=== PATIENT | female | born 1970 | race Caucasian/White ===

== ENCOUNTER → 2020-03-21 16:05 | Outpatient (CLI) | payer BC, SELFPAY ==
--- NOTE | ~2020-03-21 | MM_ITS ---
EXAMINATION: MM screening [facility] BI w cecy HISTORY: Screening TECHNIQUE: Craniocaudal and mediolateral oblique 3-D tomosynthesis images were obtained and synthetic 2-D images were generated. CAD analysis was submitted and interpreted. COMPARISON: Comparison to multiple prior studies sequentially, with oldest reviewed study dated 06/15. BREAST PARENCHYMAL COMPOSITION: The breasts are heterogenously dense, which may obscure small masses FINDINGS: There is no evidence of suspicious mass, calcification, or architectural distortion to sugg est malignancy in either breast. There has been no suspicious interval change. IMPRESSION: 1. No mammographic evidence of malignancy. 2. Recommend routine screening mammography in one year. BI-RADS Category 1: Negative Reviewed, dictated and finalized at location A.
== END ==
PROVIDERS: PCP Family Medicine; Visit Provider Obstetrics & Gynecology
DX: Z12.31 Encounter for screening mammogram for malignant neoplasm of breast (principal)
CPT/HCPCS: 77063; 77067

== ENCOUNTER → 2021-04-27 15:53 | Outpatient (CLI) | payer BC, SELFPAY ==
--- NOTE | ~2021-04-27 | MM_ITS ---
EXAMINATION: MM screening [facility] BI w cecy HISTORY: Screening mammogram TECHNIQUE: Craniocaudal and mediolateral oblique 3-D tomosynthesis images were obtained and synthetic 2-D images were generated. CAD analysis was submitted and interpreted. COMPARISON: 03/21/2020, 11/02/2018, 09/10/2017 bilateral digital screening mammogram examinations BREAST PARENCHYMAL COMPOSITION: The breasts are heterogeneously dense, which may obscure small masses . FINDINGS: There is no evidence of suspicious mass, calcification, or architectural distortion to sugg est malignancy in either breast. There has been no suspicious interval change. IMPRESSION: 1. No mammographic evidence of malignancy. 2. Recommend routine screening mammography in one year. BI-RADS Category 1: Negative Reviewed, dictated and finalized at location A.
== END ==
PROVIDERS: PCP Family Medicine; Visit Provider Obstetrics & Gynecology
DX: Z12.31 Encounter for screening mammogram for malignant neoplasm of breast (principal)
CPT/HCPCS: 77063; 77067

== ENCOUNTER 2022-03-05 00:48 | Day surgery (SDC) | payer BC, SELFPAY ==
[2022-02-20 13:24] VITALS: BMI 26.6
[2022-03-05 06:40] VITALS: BP 106/79; PULSE 74; RESP 18; TEMP 35.9; O2SAT 100; BMI 26.8
[2022-03-05] MEDS: LACTATED RINGERS 1,000 ML 150 ML IV CONT (07:03)
--- NOTE | 2022-03-05 07:36 | P.PNAN_ITS ---
Anes - Initial Pre Proc Eval Procedure: Operation Date: 03/05/22 08:15 Proposed Procedures p Screening Colonoscopy - Janes Lyon MD Date/Time: 03/05/22 07:36 Surgeon: Janes Lyon MD Pre Op Diagnosis: neoplasm screening Patient Data Age: 51 Gender: F Height: 1.73 m Weight: 80.1 kg Last Vital Signs Temp 96.6 F L 03/05/22 06:40 Pulse 74 03/05/22 06:40 Resp 18 03/05/22 06:40 BP 106/79 03/05/22 06:40 Pulse Ox 100 03/05/22 06:40 O2 Del Method Room Air 03/05/22 06:40 Allergies Allergy/AdvReac Type Severity Reaction Status Date / Time No Known Allergies Allergy Unknown Verified 03/05/22 06:49 Home Medications Medication Instructions Recorded Confirmed Type multivitamin 1 tablet PO DAILY 02/29/20 03/05/22 History Patient hx anesthesia problems: none Family hx anesthesia problems: none Results Review: All pre-operative results and documents have been reviewed as part of the pre- operative evaluation. [facility] Past Medical History Medical History Cervical dysplasia Hypothyroidism Menopausal symptoms Surgical History Surgical History History of hysterectomy Family History Family History Father Hypertension, Onset Age: 79 Family history of coronary artery disease, Onset Age: 79 Patient's father is Heart disease Other Adult hypothyroidism Cerebrovascular accident Diabetes mellitus Family history of malignant neoplasm History of appendectomy Social History Social History Smoking status: Former smoker Second hand tobacco smoke exposure: No Smoking end date: 07/14/02 Alcohol intake: current Drinks per week: 3 Substance use type: does not use Living arrangements: with family Spiritual care concerns: No Anes - Eval Final PreProcedure Day of Procedure 03/05/22 07:36 Patient weight: normal Heart: regular rate and rhythm Lungs: clear to auscultation Airway: Mallampati scale class II Neurological: alert and oriented Last oral intake: >/= 8 hours ASA classification: II Emergent: no Anesthetic plan: proceed Anesthesia type and monitoring: general GIVS and standard monitoring Results Review: All pre-operative results and documents have been reviewed as part of the pre- operative evaluation. Informed Consent: The patient's anesthetic plan and its attendant risks and benefits were discussed with the patient/family/POA. Questions were solicited and answers provided to the satisfaction of the patient/family/POA.
--- NOTE | 2022-03-05 07:51 | PM.HPGS ---
History of Present Illness History of Present Illness Consent: Risks, benefits, and alternatives have been discussed and questions answered. Patient agrees to proceed with procedure. Chief complaint: neoplasm screening Narrative: Jessica Chawla is a 51 year old female here for first screening colonoscopy Review of Systems Constitutional: Constitutional: Denies headache(s) and Denies weakness Eyes: Eyes: Denies blurry vision ENT: Reports Normal hearing present, Denies headache(s) and Denies neck pain Cardiovascular: Cardiovascular: Denies chest pain and Denies dyspnea Respiratory: Respiratory: Denies dyspnea Gastrointestinal: Gastrointestinal: Reports no additional gastrointestinal complaints Genitourinary: Genitourinary: Denies dysuria Musculoskeletal: Musculoskeletal: Denies neck pain Integumentary/Breasts: Skin/Breast: Denies dry skin Neurologic: Reports Normal hearing present, Denies headache(s) and Denies weakness Psychiatric: Psychiatric: Denies anxiety Endocrine: Endocrine: Denies change in body appearance Hematologic/Lymphatic: Hematologic/Lymphatic: Denies easy bleeding Allergic/Immunologic: Allergic/Immunologic: Denies urticaria PMFSH Past Medical History Medical History (Updated 03/05/22 @ 07:51 by Janes Lyon MD) Cervical dysplasia Colon cancer screening Hypothyroidism Menopausal symptoms Surgical History Surgical History History of hysterectomy Family History Family History Father Hypertension, Onset Age: 79 Family history of coronary artery disease, Onset Age: 79 Patient's father is Heart disease Other Adult hypothyroidism Cerebrovascular accident Diabetes mellitus Family history of malignant neoplasm History of appendectomy Social History Social History Smoking status: Former smoker Second hand tobacco smoke exposure: No Smoking end date: 07/14/02 Alcohol intake: current Drinks per week: 3 Substance use type: does not use Living arrangements: with family Spiritual care concerns: No Meds Home Medications and Allergies Home Medications Medication Instructions Recorded Confirmed Type multivitamin 1 tablet PO DAILY 02/29/20 03/05/22 History Allergies Allergy/AdvReac Type Severity Reaction Status Date / Time No Known Allergies Allergy Unknown Verified 03/05/22 06:49 Vital Signs Vital Signs - 24 hr 03/05/22 06:40 Temperature 96.6 F L Pulse Rate 74 Respiratory Rate 18 Blood Pressure 106/79 Pulse Oximetry 100 Oxygen Delivery Room Air Exam Const: General: comfortable and no acute distress HENMT: General nose exam: Normal nares present Eyes: General: appearance normal, both eyes and all related structures Neck: Neck: no JVD Resp: Auscultation: clear to auscultation bilaterally Cardio: Rate: regular rate Rhythm: regular rhythm GI: Inspection: non-distended GI Palp: Yes Soft to palpation Skin: General skin exam: normal color Neuro: General: gait normal Speech: normal speech Extrem: General: normal to inspection Psych: Mental Status: mental status grossly normal Assessment and Plan Assessment and plan (1) Colon cancer screening: Code(s): Z12.11 - Encounter for screening for malignant neoplasm of colon Status: Acute Assessment and Plan: colonoscopy
[2022-03-05 08:07] VITALS: BP 90/59; PULSE 78; RESP 13; O2SAT 97
[2022-03-05 08:17] VITALS: BP 106/75; PULSE 81; RESP 15; O2SAT 100
[2022-03-05 08:27] VITALS: BP 111/76; PULSE 67; RESP 15; O2SAT 100
== END 2022-03-05 08:35 | disposition home or self-care (01) ==
PROVIDERS: PCP Family Medicine; Visit Provider Internal Medicine Gastroenterology
PROC: 0DJD8ZZ Inspection of Lower Intestinal Tract, Via Natural or Artificial Opening Endoscopic (ICD-10-PCS; CPT 45378; principal; 2022-03-05 08:15)
DX: Z12.11 Encounter for screening for malignant neoplasm of colon (principal); K64.8 Other hemorrhoids; K63.89 Other specified diseases of intestine; E03.9 Hypothyroidism, unspecified; Z87.891 Personal history of nicotine dependence
CPT/HCPCS: 45378; J2704; J7120

== ENCOUNTER → 2022-07-29 16:22 | Outpatient (CLI) | payer BC, SELFPAY ==
--- NOTE | ~2022-07-29 | MM_ITS ---
EXAMINATION: MM screening [facility] BI w cecy HISTORY: Screening mammogram TECHNIQUE: Craniocaudal and mediolateral oblique 3-D tomosynthesis images were obtained and synthetic 2-D images were generated. CAD analysis was submitted and interpreted. COMPARISON: 04/27/2021, 03/21/2020, 11/02/2018 BREAST PARENCHYMAL COMPOSITION: There are scattered areas of fibroglandular density. FINDINGS: No suspicious mass, calcification, or architectural distortion are identified in either michael ast to suggest malignancy. There has been no suspicious interval change. IMPRESSION: 1. No mammographic evidence of malignancy. 2. Recommend routine screening mammography in one year. BI-RADS Category 1: Negative Reviewed, dictated and finalized at location A. FOLLOWER
== END ==
PROVIDERS: PCP Family Medicine; Visit Provider Obstetrics & Gynecology
DX: Z12.31 Encounter for screening mammogram for malignant neoplasm of breast (principal)
CPT/HCPCS: 77063; 77067

== ENCOUNTER 2024-02-10 14:10 | Outpatient (CLI) | payer BC, SELFPAY ==
--- NOTE | ~2024-02-10 | MM_ITS ---
EXAMINATION: MM screening [facility] BI w cecy HISTORY: Screening TECHNIQUE: Craniocaudal and mediolateral oblique 3-D tomosynthesis images were obtained and synthetic 2-D images were generated. CAD analysis was submitted and interpreted. COMPARISON: Comparison to multiple prior studies sequentially, with oldest reviewed study dated 09/05. BREAST PARENCHYMAL COMPOSITION: Not dense: There are scattered areas of fibroglandular density. FINDINGS: There is no evidence of suspicious mass, calcification, or architectural distortion to sugg est malignancy in either breast. There has been no suspicious interval change. IMPRESSION: 1. No mammographic evidence of malignancy. 2. Recommend routine screening mammography in one year. BI-RADS Category 1: Negative Reviewed, dictated and finalized at location B.
== END 2024-02-10 14:11 ==
LOC: MICIMG 14:12
PROVIDERS: PCP Family Medicine; Visit Provider Family Medicine
DX: Z12.31 Encounter for screening mammogram for malignant neoplasm of breast (principal)
CPT/HCPCS: 77063; 77067

== ENCOUNTER 2024-11-02 15:34 | Outpatient (CLI) | payer BC, SELFPAY ==
--- NOTE | ~2024-11-02 | CT_ITS ---
CLINICAL INDICATION: Right flank pain COMPARISON: None. TECHNIQUE: Multiple contiguous axial images of the abdomen and pelvis were performed without the admi nistration of intravenous contrast The dose-length product (DLP) was 202.66 mGy-cm. Automated exposure control and iterative reconstruction technique were employed. FINDINGS/OBSERVATIONS: Visualized lower thorax: The bilateral lung bases are clear. The heart is of normal size, without pericardial effusion. Small hiatal hernia is present. Liver: The liver demonstrates homogeneous attenuation and is not enlarged. Gallbladder and biliary system: The gallbladder is decompressed, with surrounding inflammatory change, a nonspecific finding. Pancreas: Limited evaluation of the pancreas secondary to the lack of intravenous contrast. Spleen: The spleen demonstrates homogeneous attenuation and is not enlarged. Kidneys: A 5.4 mm nonobstructing calcified stone is identified within the lower pole of the right kidney. A 2 mm calcified nonobstructing stone is identified within the upper pole of the right kidney. A 3.4 mm nonobstructing calcified stone is identified within the upper pole of the left kidney. A 5 mm nonobstructing calcified stone is identified within the lower pole of the left kidney. No hydronephrosis is identified bilaterally. Adrenal glands: Unremarkable. Gastrointestinal tract: Trace fecal stasis within the colon. Appendix: The air-filled appendix is of normal caliber (axial series, images 113 through 126) Vasculature: Unremarkable. Lymph nodes: No pathologically enlarged or morphologically suspicious lymph nodes within the retroperitoneum or at the root of the mesentery. Pelvic structures: The bladder is significantly distended, and otherwise unremarkable. The uterus is either surgically absent or markedly atrophic. Body wall and musculoskeletal: Small fat-containing umbilical hernia. No significant degenerative disease within the lower thoracic or lumbosacral spine. IMPRESSION: No obstructive uropathy. Bilateral nonobstructing renal calculi, as detailed above. Inflammatory change is identified surrounding a decompressed gallbladder, a nonspecific finding. Reviewed, dictated and finalized at location A. IMPRESSION: No obstructive uropathy. Bilateral nonobstructing renal calculi, as detailed above. Inflammatory change is identified surrounding a decompressed gallbladder, a non specific finding.
--- NOTE | ~2024-11-02 | XR_ITS ---
Exam: Abdomen 1V HISTORY: UNSPECIFIED ABDOMEN PAIN COMPARISON: Reference is made to a CT examination of the abdomen and pelvis, performed approximately 15 minutes earlier. TECHNIQUE: Supine images of the abdomen FINDINGS: Bowel gas pattern is nonspecific and non-obstructive. Fecal stasis within the colon. Calcifications detected bilaterally projecting over the bilateral kidneys. 5 mm projecting over the lower pole of the right kidney and 3 mm projecting over the lower pole of th e left kidney. Lung bases are clear. Bones and soft tissues are unremarkable. IMPRESSION: Nonspecific, nonobstructive bowel gas pattern. Bilateral renal calculi. Reviewed, dictated and finalized at location A.
--- OUTSIDE RECORDS SUMMARY | 2024-11-02 17:41 | XMS_ITS | Clinical Summary ---
Author Organization [address] Address [address] [place] [address] Care Team Providers Care Mental Health Unit Lead Psychologist Name Role Phone No, Physician Primary Care Provider [phone] Allergies No known active allergies Medications No known medications Active Problems No known active problems Encounters Date Type Department Care Team Description 10/19/2024 Telephone [facility] at [address] [place] [address] Christina Hayes MA 10/17/2024 Results Follow-Up [facility] Medical [facility] at [address] [place] [address] Queenie Stevens NP 10/16/2024 2:30 PM CDT Office Visit [facility] Medical [facility] at [address] [place] [address] Queenie Stevens NP Urinary tract infection without hematuria, site unspecified (Primary Dx); Flank pain; Dysuria 10/16/2024 2:26 PM CDT - 10/16/2024 11:59 PM [place] [address] Urinary tract infection without hematuria, site unspecified Discharge Disposition: Discharge to home or self care from Last 3 Months Social History Tobacco Use Types Packs/Day Years Used Date Smoking Tobacco: Former Cigarettes Passive Smoke Exposure: Never Comments No Sex and Gender Information Value Date Recorded Sex Assigned at Not on file 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 Gender Identity Not on file Sexual Orientation Not on file Obstetrics History Last Filed Vital Signs Vital Sign Reading Time Taken Comments Blood Pressure 110/76 10/16/2024 2:29 PM CDT Pulse 89 10/16/2024 2:29 PM CDT Temperature 37 C (98.6 F) 10/16/2024 2:29 PM CDT Respiratory Rate 18 10/16/2024 2:29 PM CDT Oxygen Saturation 99% 10/16/2024 2:29 PM CDT Inhaled Oxygen Concentration - - Weight 79 kg (174 lb 3.2 oz) 10/16/2024 2:29 PM CDT Height - - Body Mass Index - - Plan of Treatment Health Maintenance Due Date Last Done Comments Breast Cancer Screening-Mammogram 1972 Colon Cancer Screening-Colonoscopy 1972 Depression Screening 1972 Hepatitis C Screening 1972 DTaP/Tdap/Td Vaccine (1 - Tdap) 1983 Hepatitis B Screening 1990 Regular Well Visit/Exam 18-64 1990 Zoster Vaccine (1 of 2) 2022 Influenza Vaccine (Season Ended) 2025 Pneumococcal vaccine <65 Aged Out No longer eligible based on patient's age to complete this topic Procedures Procedure Name Priority Date/Time Associated Diagnosis Comments POCT URINALYSIS DIPSTICK Routine 10/16/2024 2:40 PM CDT Urinary tract infection without hematuria, site unspecified URINE CULTURE Routine 10/16/2024 2:26 PM CDT Urinary tract infection without hematuria, site unspecified from Last 3 Months Results * (ABNORMAL) POCT urinalysis dipstick (10/16/2024 2:40 PM CDT) Color, Urine, POC Yellow Clarity, ur, POC Clear Clear Glucose, ur, POC Negative Negative MG/DL Bilirubin, ur, POC Negative Negative, Small, Moderate, Large Ketones, ur, POC Trace(A) Negative Specific [place], POC 1.015 1.003 - 1.030 Blood, ur, POC Negative Negative pH, ur, POC 6.5 5.0 - 8.0 Protein, ur, POC Negative Negative Urobilinogen, urine, POC 0.2 0.2 - 1.0 mg/dL Nitrite, ur, POC Negative Negative Leukocytes, ur, POC Negative Negative Lot Number [id number] Urine 10/16/2024 2:40 PM CDT Queenie Stevens NP POINT OF CARE TEST ORDERAB LES Final Result * Urine culture Urine, bladder (10/16/2024 2:26 PM CDT) Report Final Report: Less than 100,000 colonies/mL (clinically insignificant growth based on current clinical standards) Comment:Testing performed by : [facility], [address] [facility] [place]., [address] Organism (CLINICALLY INSIGNIFICANT GROWTH TITO Urine, bladder 10/16/2024 2: 26 PM CDT 10/16/2024 7:41 PM CDT Narrative TITO - 10/18/2024 6:12 AM CDT Testing performed by [facility] Microbiology Laboratory ([phone]) Queenie Stevens NP LAB MICROBIOLOGY - GENERAL ORDERABLES Final Result TITO [id number] Department [place] [address] from Last 3 Months Insurance [facility] Care Teams Mental Health Unit Lead Psychologist Relationship Specialty Start Date End Date No, Physician PCP - General 10/16/24
--- OUTSIDE RECORDS SUMMARY | 2024-11-02 17:41 | XMS_ITS | Referral Summary ---
Author Organization [address] Address [address] [place] [address] Care Team Providers Care Oracle Business Intelligence Developer Name Role Phone No, Physician Primary Care Provider [phone] Encounters Date Type Department Care Team Description 10/19/2024 Telephone [facility] at [address] [place] [phone] Christina Hayes MA 10/17/2024 Results Follow-Up [facility] Medical [facility] Care at [address] [place] [phone] Queenie Stevens NP 10/16/2024 2:26 PM CDT - 10/16/2024 11:59 PM CD[place] [address] Urinary tract infection without hematuria, site unspecified Discharge Disposition: Discharge to home or self care 10/16/2024 2:30 PM CDT Office Visit [facility] at [address] [place] [phone] Queenie Stevens, MARKO Urinary tract infection without hematuria, site unspecified (Primary Dx); Flank pain; Dysuria from Last 3 Months Allergies No known active allergies Medications No known medications Active Problems No known active problems Social History Tobacco Use Types Packs/Day Years Used Date Smoking Tobacco: Former Cigarettes Passive Smoke Exposure: Never Comments No Sex and Gender Information Value Date Recorded Sex Assigned at Not on file 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 Gender Identity Not on file Sexual Orientation Not on file Last Filed Vital Signs Vital Sign Reading [...] Mass Index - - Plan of Treatment Not on file Procedures Procedure Name Priority Date/Time Associated Diagnosis [...] Large Ketones, ur, POC Trace(A) Negative Specific Thomas, POC 1.015 1.003 - 1.030 Blood, ur, POC Negative Negative pH, ur, POC 6.5 5.0 - 8.0 Protein, ur, POC Negative Negative Urobilinogen, urine, POC 0.2 0.2 - 1.0 mg/dL Nitrite, ur, POC Negative Negative Leukocytes, ur, POC Negative Negative Lot Number [id number] Urine 10/16/2024 2:40 PM CDT Queenie Stevens NP POINT OF CARE TEST ORDERAB LES Final Result * Urine culture Urine, bladder (10/16/2024 2:26 PM CDT) Report Final Report: Less than 100,000 colonies/mL (clinically insignificant growth based on current clinical standards) Comment:Testing performed by : [facility], [address] [facility], [facility] [place] [address] Organism (CLINICALLY INSIGNIFICANT GROWTH TITO GUILLEN Urine, bladder 10/16/2024 2: 26 PM CDT 10/16/2024 7:41 PM CDT Narrative TITO GUILLEN - 10/18/2024 6:12 AM CDT Testing performed by [facility] Microbiology Laboratory ([phone]) us Queenie Stevens NP LAB MICROBIOLOGY - GENERAL ORDERABLES Final Result TITO GUILLEN [id number] Department [place] [address] from Last 3 Months Insurance [facility] Care Teams Oracle Business Intelligence Developer Relationship Specialty Start Date End Date No, Physician PCP - General 10/16/24
--- OUTSIDE RECORDS SUMMARY | 2024-11-02 17:41 | XMS_ITS | Encounter Summary ---
Author Organization [facility] Address [address] [place] [id number] Care Team Providers Care Medical Technician Name Role Phone No, Physician Primary Care Provider [phone] Encounter Details Date Type Department Care Team (Late st Contact Info) Description 10/17/2024 Results Follow-Up [facility] at [place] [address] [place] [address] Queenie Stevens, BANK MANAGER 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 No antibiotic prescribed. documented in this encounter Plan of Treatment Not on file documented as of this encounter Visit Diagnoses Not on filedocumented in this encounter Care Teams Medical Technician Relationship Specialty Start Date End Date No, Physician PCP - General 10/16/24 documented as of this encounter
== END 2024-11-02 15:35 | disposition home or self-care (01) ==
PROVIDERS: PCP Family Medicine; Visit Provider Nurse Practitioner Family
DX: N20.0 Calculus of kidney (principal); K81.9 Cholecystitis, unspecified; K82.9 Disease of gallbladder, unspecified
CPT/HCPCS: 74018; 74176

== ENCOUNTER 2024-11-13 08:18 | Outpatient (CLI) | payer BC, SELFPAY ==
--- NOTE | ~2024-11-13 | US_ITS ---
Abdominal Sonogram: Real-time sonographic imaging of the abdomen was performed. Clinical History: Abnormal findings of diagnostic imaging Findings: The liver appears normal with no evidence of mass lesion or bile duct dilatation. Main por yuliet vein demonstrates normal direction of flow. The spleen is normal in size without evidence of foca l lesion. The gallbladder is well distended, and contains an echogenic, shadowing gallstone. No gall bladder wall thickening. The common bile duct measures 4 mm. The visualized pancreas, aorta, and IVC are unremarkable. The right kidney measures 11.0 cm in length and the left kidney measures 11.3 cm. There is no hydronephrosis or renal calculus. Impression: Cholelithiasis. Reviewed, dictated and finalized at location M. Impression: Cholelithiasis.
== END 2024-11-13 08:19 | disposition home or self-care (01) ==
LOC: MICIMG 08:19
PROVIDERS: PCP Family Medicine; Visit Provider Nurse Practitioner Family
DX: R93.5 Abnormal findings on diagnostic imaging of other abdominal regions, including retroperitoneum (principal); K80.20 Calculus of gallbladder without cholecystitis without obstruction; K82.9 Disease of gallbladder, unspecified; Z13.1 Encounter for screening for diabetes mellitus; Z13.220 Encounter for screening for lipoid disorders
CPT/HCPCS: 76700

== ENCOUNTER 2025-01-19 00:20 | Day surgery (SDC) | payer BC, SELFPAY ==
[2025-01-11 15:05] VITALS: BMI 26.6
--- NOTE | 2025-01-11 15:12 | SUR.PREOP ---
Report to the Outpatient Waiting Room, entrance under the green pavilion located off [facility], at time 6:00a.m on date 01/19/2025. Planned Procedure Time: 7:30a.m. Time changes happen often and if your time is changed the preop area will call you the afternoon before. - You and your visitor will be asked to self-screen and do not enter if you have any COVID symptoms. Please call surgeon if you need to reschedule. - A mask is optional within the hospital at this time. Patients may have clear liquids (water, carbonated beverages, clear teas, apple juice) until 3 hours prior to surgery with a maximum of 20 ounces. - No food from midnight until time of surgery and no smoking, or chewing tobacco (or any form of nicotine). No chewing gum, candy or mints. Take only the following medications with a SIP of water on the morning of surgery: NONE DO NOT STOP ANY OF YOUR OTHER PRESCRIPTION MEDICATIONS PRIOR TO SURGERY EXCEPT THE FOLLOWING Hold all vitamins and supplements for 3 days per anesthesiologist. STOP TAKING MULTIVITAMIN 01/17/2025 Please no make-up, nail kazakh, hairspray, perfume, deodorant, or body powder the day of surgery.? No jewelry (including any body piercings) or valuables the day of surgery, leave them at home.? Please take a shower or bath the night before, or the morning of, surgery with an antibacterial soap.? Wear comfortable, loose fitting clothing.? Children are encouraged to wear pajamas. - Jewelry must be removed prior to entering the operating room.? Rings and piercings that are not removed may be cut off. - The hospital will not accept responsibility for valuables.? - Please leave all valuables, including medications, at home the day of surgery. If you are going home after surgery, a licensed putaway driver must drive you home.? - NO public transportation without another adult if you receive anesthesia. - We recommend that an adult stay with you for 24 hours following discharge. - We also recommend that you do not drive, make important decision, drink alcoholic beverages, or take any drugs that were not prescribed by your health care provider for at least 24 hours after your discharge time. Follow any additional instructions given to you from your surgeon. Telephone instructions given to Jessica Ling and asked if any additional questions and then verbalized understanding. Patient advised to call surgeon office or pre surgery nurse liaison [phone] if any additional questions.
--- NOTE | 2025-01-18 07:07 | P.SS_ITS ---
Same Day Admit/Disch: HPI History of Present Illness Chief complaint: chronic cholecystitis with cholelithiasis Narrative: Jessica Ling is a 54 year old female with gallstones and right upper quadrant pain.Patient reports she started to experience severe right flank pain that radiated to RUQ. She states she was up all night with nausea, vomiting and diarrhea. She states the pain resolved by the next day, but she is still having some abdominal tenderness. Patient had CT scan done on 11/02/24 which showed The gallbladder is decompressed, with surrounding inflammatory change, a nonspecific finding. A follow up US done on 11/13/24 showed cholelithiasis. Patient reports her mother had a cholecystectomy. [facility] Past Medical History Medical History Gallstones and inflammation of gallbladder without obstruction Constipation Bilateral renal stones Nausea & vomiting Fatigue Onychomycosis of toenail Toenail deformity Enlarged thyroid gland Right flank pain BMI 25.0-25.9,adult Body mass index [BMI] 26.0-26.9, adult Colon cancer screening Cervical dysplasia Hypothyroidism Menopausal symptoms Surgical History Surgical History H/O LEEP History of hysterectomy (~2011) Abnormal pap smears per patient. Dr Juares Family History Family History Father Hypertension, Onset Age: 79 Family history of coronary artery disease, Onset Age: 79 Patient's father is Heart disease Other Adult hypothyroidism Cerebrovascular accident Diabetes mellitus Family history of malignant neoplasm History of appendectomy Social History Social History Smoking status: Former smoker Second hand tobacco smoke exposure: No Smoking end date: 07/14/02 Alcohol intake: current Drinks per week: 3 Substance use type: does not use Do You Feel Safe in your Home?: Yes Lack of Transportation: No Lack of Food: Never True Current Housing: I Have Housing Concerned About Future Housing: No Difficulty Paying Gas/Electric Bills: No Difficulty Paying for Meds: No Currently Unemployed: No Education: Bachelor's Degree Difficulty w/ Childcare or Family Care: No Living arrangements: with family Occupation/Education: occupation Gender identity (if verbalized by the patient): Female Spiritual care concerns: No Same Day Admit/Disch: Med Pre-admit Medications Home Medications ?Medication ?Instructions ?Recorded ?Confirmed ?Type multivitamin 1 tablet PO DAILY 02/29/20 01/11/25 History estradiol 2 mg tablet 2 mg PO DAILY 04/16/23 01/11/25 History prasterone (DHEA) 25 mg tablet 10 mg PO DAILY 06/02/23 01/11/25 History (DHEA) ketorolac 10 mg tablet 10 mg PO Q6H 4 days #16 tabs 01/19/25 Rx oxycodone-acetaminophen 5 mg-325 0.5 - 1 tablet PO Q4H PRN pain #10 01/19/25 Rx mg tablet (Percocet) tabs Review of Systems Review of Systems All systems reviewed & are unremarkable except as noted in HPI and below (HPI) Exam Const: General: comfortable, no acute distress, alert and awake HENMT: Head: normocephalic and atraumatic Mouth: Yes Normal oral and palatal mucosa present Eyes: Conjunctivae: conjunctivae normal Pupils: Equal, round and reactive pupils present EOM: EOMs intact bilaterally Neck: Neck: normal visual inspection, no lymphadenopathy and nontender Resp: Effort & Inspection: normal respiratory effort Auscultation: clear to auscultation bilaterally Cardio: Rate: regular rate Rhythm: regular rhythm Heart sounds: no gallops, no murmurs and no rubs GI: Inspection: non-distended GI Palp: Yes Soft to palpation, No Tenderness to palpation present (GI), No Hepatomegaly present and No Splenomegaly present Skin: Lesions: no lesions Rashes: no rashes Neuro: General: no focal motor deficits and CN's II-XI intact bilaterally Cranial nerves: Yes Equal, round and reactive pupils present, Yes Bilaterally intact EOM present, Yes facial symmetry and Yes Midline tongue present Speech: normal speech Motor exam (neuro): 5/5 motor strength present throughout and Motor abnormalities not present Extrem: General: no clubbing, cyanosis or edema and edema Psych: Affect: normal affect Thought process: Normal thought process present Insight: Good insight present (Psych) DS: Summary Time Spent with Patient Time attestation: Total time spent providing and/or coordinating discharge services: DS: Admitting Diagnosis Discharge Date 01/19/2025 Admitting Diagnosis * Chronic cholecystitis, cholelithiasis-after discussion, plan to proceed with laparoscopic cholecystectomy under general anesthesia. The procedure, risks, benefits, length of surgery, length of usual recovery have all been discussed. All questions were answered. Patient wishes to go ahead with the surgery. DS: Discharge Diagnosis Discharge Diagnosis (1) Chronic cholecystitis with calculus: Code(s): K80.10 - Calculus of gallbladder with chronic cholecystitis without obstruction Status: Chronic Assessment and Plan: Laparoscopic og be performed 01/19/[address] Balderas Discharge Plan Discharge Patient Disposition: Home Discharge Instructions: 1. May shower the day after surgery over incisions. 2. Call office for: -Wound increasingly painful or bleeding -Vomiting -Fever of greater than 101 degrees 3. Expect some blood on dressing and old blood on skin. 4. If no bowel movement for three days, take 1 oz. (30 ml) Milk of Magnesia, if no results, take Fleets enema. 5. No heavy lifting > 15-20 pounds for 2 weeks. 6. No driving for 3 days or while taking narcotic pain medications. 7. Up walking 10-30 minutes three times per day. 8. Resume previous home medications. 9. Follow-up 10-14 days in office for wound check or as previously scheduled. 10. Oral pain medications prescription to be sent home with patient. 11. NUTRITION: Start out by drinking fluids and increase your diet as tolerated. If you experience nausea, try dry toast, crackers, and 7-UP. If nausea or vomiting persists, contact your surgeon?s office. Patient Language: Romansh Stand Alone Forms: General Discharge Instructions Follow-up/Referrals: Last Balderas MD [Physician] - 2 Weeks Discharge Medications: New ketorolac 10 mg tablet 10 mg PO Q6H 4 Days Qty: 16 0RF oxycodone-acetaminophen [Percocet] 5-325 mg tablet 0.5 - 1 tablet PO Q4H PRN (Reason: pain) Qty: 10 0RF Continued prasterone (DHEA) [DHEA] 25 mg tablet 10 mg PO DAILY multivitamin Tablet 1 tablet PO DAILY estradiol 2 mg tablet 2 mg PO DAILY Other Ambulatory Orders: Amylase (Routine) Timeframe: 1 Week Location: Determined by Patient Ordered By: Last Balderas CA 12 lead EKG (Routine) Timeframe: 1 Week Location: Determined by Patient Ordered By: Last Balderas Hepatic Panel (Routine) Timeframe: 1 Week Location: Determined by Patient Ordered By: Last Balderas Lipase (Routine) Timeframe: 1 Week Location: Determined by Patient Ordered By: Last Baldears
[2025-01-19] VITALS (9 sets, daily range): BP systolic 100–121; BP diastolic 69–79; PULSE 68–88; RESP 12–21; TEMP 36.2–36.3; O2SAT 99–100; BMI 26.9
--- OUTSIDE RECORDS SUMMARY | 2025-01-19 00:23 | XMS_ITS | Referral Summary ---
Author Organization [address] Address [address] [place] [address] Care Team Providers Care Washing Machine Repairer Name Role Phone No, Physician Primary Care Provider [phone] Allergies No known active allergies Medications No known medications Active Problems No known active problems Social History Tobacco Use Types Packs/Day Years Used Date Smoking Tobacco: Former Cigarettes Passive Smoke Exposure: Never Comments No Sex and Gender Information Value Date Recorded Sex Assigned at Not on file Legal Sex Female 3:55 AM [employer] Gender Identity Not on file Sexual Orientation [...] - Plan of Treatment Not on file Insurance [employer] [place] Care Teams Washing Machine Repairer Relationship Specialty Start Date End Date No, Physician PCP - General 10/16/24
--- OUTSIDE RECORDS SUMMARY | 2025-01-19 00:23 | XMS_ITS | Clinical Summary ---
Author Organization [address] Address [address] [place] [address] Care Team Providers Care Vp Purchasing Name Role Phone No, Physician Primary Care Provider [phone] Allergies No known active allergies Medications No known medications Active Problems No known active problems Social History Tobacco Use Types Packs/Day Years Used Date Smoking Tobacco: Former Cigarettes Passive Smoke Exposure: Never Comments No Sex and Gender Information Value Date Recorded Sex Assigned at Not on file Legal Sex Female 3:55 AM [employer] Gender Identity Not on file Sexual Orientation [...] on patient's age to complete this topic Insurance [facility] Care Teams Vp Purchasing Relationship Specialty Start Date End Date No, Physician PCP - General 10/16/24
--- NOTE | 2025-01-19 06:06 | ECG_ITS ---
Test Date: 2025-01-19 07:01:29 Measurements Intervals [place] Rate: 63 P: 67 GA: 159 QRS: 71 QRSD: 83 T: 56 QT: 414 QTc: 426 Interpretive Statements SINUS RHYTHM WITHIN NORMAL LIMITS No previous ECG available for comparison Electronically Signed On 01-19-2025 07:55:04 CDT by Fab Ayala M.D.
--- NOTE | 2025-01-19 06:59 | WPDHPUPDATE1 ---
History and Physical Update Update Date/Time: 01/19/25 06:59 History and Physical has been reviewed, including an updated exam of the patient. There are NO changes in the patient's condition. Risks, benefits, and alternatives have been discussed and questions answered. Patient agrees to proceed with procedure.
[2025-01-19] MEDS: KETOROLAC 15 MG/ML VIAL (*BKC) IV PUSH (07:13)
[2025-01-19] MEDS: ACETAMINOPHEN 500 MG TABLET 1000 MG PO (07:13)
[2025-01-19] MEDS: SCOPOLAMINE 1 MG PATCH 1 PATCH TRANSDERM (07:19)
[2025-01-19] MEDS: ceFAZolin 2 GM in SODIUM CHLORIDE 0.9% IV 50 ML 100 ML IVPB (07:28)
--- NOTE | 2025-01-19 07:50 | S_PTH ---
PATIENT: Jessica Ling LOC: [facility] U#:[id number] AGE/SX: 54/F ROOM: RE01/19/[address]: Last Balderas MD : 1970 BED: DIS: 01/19/2025 SPEC #: [id number] RECD: 01/19/25 10:56 STATUS: SOUYulisa REQ #: [id number] ROYER: 01/19/25 07:[address]: Last Balderas DEPT: [facility] Surgical RECD BY: Yolanda Daniel ENTERED: 01/19/25 10:57 SP TYPE: Surgical OTHR DR: Roman Suazo MD Tissues: A - Gallbladder Procedures: Hematoxylin and Eosin Stain Gross and Microscopic Level 3
[2025-01-19] MEDS: BUPIVACAINE/EPINEPHRINE 0.5% 30 ML VIAL INFILTRATE (07:56)
[2025-01-19] MEDS: LACTATED RINGERS 1,000 ML 30 ML IV CONT ×2 (08:52→09:35)
--- NOTE | 2025-01-19 08:54 | P.OP_ITS ---
Procedure Note - Detailed Date of Procedure 01/19/25 Pre-op Diagnosis chronic cholecystitis with cholelithiasis Post-op Diagnosis Same Procedure Performed Laparoscopic cholecystectomy Surgeon Last Balderas MD Electronic Plotting System Operator Elizabeth MANCUSO, [place] PA-C Anesthesia General and Local Indications Patient had right flank and right upper quadrant abdominal pain associated with nausea. This lasted for several days. She had an ultrasound that showed gallstones. She is taken to surgery now for laparoscopic cholecystectomy. Findings Chronic inflammation, no biliary ductal dilatation, normal liver, gallstones Description of Procedure Patient was taken to surgery and induced into general anesthesia. The abdomen is prepped and draped. Trocars were placed in the usual fashion using viavoo optical trocars and a 5 mm camera. The gallbladder was distended and was decompressed with a laparoscopic aspirator. A Vicryl endoloop was used to close the cholecystotomy. The gallbladder was then freed from adhesions and retracted anterosuperiorly. Traction was placed on the infundibulum and dissection carried out in the cholecystohepatic triangle. The cystic duct and cystic artery were identified and dissected out clearly. There was a lot of inflammation in the area of the triangle of Calot. Eventually we dissected these structures and also dissected the gallbladder off the liver at its lower 3rd. Critical view was achieved. I then securely clipped and divided the cystic duct and cystic artery. Traction was continued to be placed on the gallbladder and it was carefully dissected free of its peritoneal attachments to the liver as well as the attachments of the gallbladder to the gallbladder fossa. Gallbladder was intrahepatic at its fundus. This was carefully dissected free with no bleeding. Cautery was used for hemostasis. Once the gallbladder was completely free, it was placed in an Endo-Catch bag and retrieved through the 10 11 epigastric trocar site. We then replaced the epigastric trocar and reviewed the right upper quadrant and triangle of Calot. All looked good with no evidence of bleeding or bile leakage. We then used a Alber cone and Alber-Sidney suture pass device. The fascia at the epigastric trocar site was closed with 0 Vicryl suture. We evacuated CO2 and removed the trocar sleeves. Skin wounds were closed with subcuticular 4-0 Monocryl skin suture. The wounds were dressed with Exofin surgical adhesive. Sponge and needle counts were correct x2. Estimated Blood Loss -5 Drains No Packing No Pathology Yes (Gallbladder) Complications None Condition Stable Disposition PACU [facility] Billing Surgery - Charge Forward: Surgery Billing (Laparoscopic cholecystectomy)
[2025-01-19] MEDS: oxyCODONE HCL (*CRX) 5 MG TAB IR PO (10:37)
== END 2025-01-19 11:10 | disposition home or self-care (01) ==
PROVIDERS: PCP Family Medicine; Visit Provider Surgery
PROC: 0FT44ZZ Resection of Gallbladder, Percutaneous Endoscopic Approach (ICD-10-PCS; CPT 47562; principal; 2025-01-19 07:30)
DX: K80.10 Calculus of gallbladder with chronic cholecystitis without obstruction (principal); G89.18 Other acute postprocedural pain; E03.9 Hypothyroidism, unspecified; Z79.891 Long term (current) use of opiate analgesic; Z98.890 Other specified postprocedural states; Z87.891 Personal history of nicotine dependence; Z87.442 Personal history of urinary calculi; Z80.9 Family history of malignant neoplasm, unspecified; Z82.49 Family history of ischemic heart disease and other diseases of the circulatory system
CPT/HCPCS: 47562; 88304; 93005; J0690; A9270; J1100; J1885; J2003; J2250; J2405; J2704; J3010; J7120

== ENCOUNTER 2025-02-11 14:54 | Outpatient (CLI) | payer BC, SELFPAY ==
--- NOTE | ~2025-02-11 | MM_ITS ---
EXAMINATION: MM screening mercedes BI w cecy HISTORY: Screening TECHNIQUE: Craniocaudal and mediolateral oblique 3-D tomosynthesis images were obtained and synthetic 2-D images were generated. CAD analysis was submitted and interpreted. COMPARISON: Comparison to multiple prior studies sequentially, with oldest reviewed study dated 09/10. BREAST PARENCHYMAL COMPOSITION: Dense: The breasts are heterogeneously dense, which may obscure small masses FINDINGS: There is no evidence of suspicious mass, calcification, or architectural distortion to sugg est malignancy in either breast. There has been no suspicious interval change. IMPRESSION: 1. No mammographic evidence of malignancy. 2. Recommend routine screening mammography in one year. BI-RADS Category 1: Negative Reviewed, dictated and finalized at location B.
== END 2025-02-11 14:55 | disposition home or self-care (01) ==
LOC: MICIMG 14:55
PROVIDERS: PCP Family Medicine; Visit Provider Nurse Practitioner Obstetrics & Gynecology
DX: Z12.31 Encounter for screening mammogram for malignant neoplasm of breast (principal)
CPT/HCPCS: 77063; 77067